=== PATIENT | female | born 1995 | race Caucasian/White ===

== ENCOUNTER 2017-01-28 14:13 | Emergency (ER) | payer MEDICAID, OTHER ==
[~2017-01-28] VITALS: Ht 154.9 cm; Wt 95.5 kg
[~2017-01-28 14:13] MED LIST: IBUP600T26 PO; METH750T2 PO
[2017-01-28 14:14] VITALS: BP 127/70; PULSE 89; RESP 18; TEMP 98.2; O2SAT 99
[2017-01-28 15:07] LABS: BASOPHIL # 0.1 TH/MM3 (0-0.2); BASOPHIL % 0.7 % (0.0-2.0); EOSINOPHIL # 0.1 TH/MM3 (0-0.4); EOSINOPHIL % 0.8 % (0.0-4.0); HEMATOCRIT 39.1 % (35.0-46.0); HEMO FLAGS DIFF FINAL; LYMPH % 32.1 % (9.0-44.0); LYMPHOCYTE # 3.2 TH/MM3 (1.0-4.8); MEAN CELL VOLUME 83.3 FL (80.0-100.0); MEAN CORPUSCULAR HEMOGLOBIN 27.4 PG (27.0-34.0); MEAN CORPUSCULAR HGB CONC 32.9 % (32.0-36.0); MONO % 5.1 % (0.0-8.0); NEUT % 61.3 % (16.0-70.0); PLATELET COUNT 295 TH/MM3 (150-450); RED CELL DISTRIBUTION WIDTH 13.7 % (11.6-17.2); WHITE BLOOD COUNT 9.8 TH/MM3 (4.0-11.0)
[2017-01-28 15:20] LABS: BICARBONATE 28.2 MEQ/L (21.0-32.0); POTASSIUM 3.3 MEQ/L (3.5-5.1)
[2017-01-28 15:56] LABS: BACTERIA, URINE OCC /hpf; BLOOD, URINE NEG (NEG); COMMENT (UR) CULTURE INDICATED; CULTURE IF INDICATED CULTURE INDICATED; GLUCOSE,URINE NEG (NEG); KETONE, URINE NEG (NEG); MUCUS URINE MANY /lpf (OCC); NITRITE,URINE NEG (NEG); PH, URINE 6.5 (5.0-8.5); SQUAMOUS EPITHELIAL CELL URINE 33 /hpf (0-5); URINE COLOR YELLOW (YELLW/STRAW)
--- NOTE | 2017-01-28 16:12 | PD ---
HPI Chief Complaint: [employer] Problem/Complaint Time Seen by Provider: 15:39 Travel History International Travel<30 days: No Contact w/Intl Traveler<30days: No Traveled to known affect area: No History of Present Illness HPI This is a 21-year-old woman who presents to the emergency department complaining of vaginal bleeding. States she has an IUD and normally only has intermittent spotting. She states she is a new male sexual partner. Over the past week she's had heavy bleeding. She denies any increased vaginal discharge. No abdominal pain. He otherwise has been feeling generally well. Review systems positive for little bit of generalized lightheadedness. History Past Medical History Medical History: Denies Significant Hx Social History Alcohol Use: No Tobacco Use: No Allergies-Medications (Allergen,Severity, Reaction): Coded Allergies: No Known Allergies (Verified , 10/25/14) Reported Meds & Prescriptions Reported Meds & Active Scripts Active Review of Systems Except as stated in HPI: all other systems reviewed are Neg Physical Exam Narrative GENERAL: 21 year-old woman, no acute distress. SKIN: Focused skin assessment warm/dry. NECK: Trachea midline. No JVD. CARDIOVASCULAR: Regular rate and rhythm. No murmur appreciated. RESPIRATORY: No accessory muscle use. Clear to auscultation. Breath sounds equal bilaterally. GASTROINTESTINAL: Abdomen soft, non-tender, nondistended. Hepatic and splenic margins not palpable. MUSCULOSKELETAL: No obvious deformities. No edema. NEUROLOGICAL: Awake and alert. No obvious cranial nerve deficits. Motor grossly within normal limits. Normal speech. : Normal sternal female genitalia with a small ulcerated herpetiform lesion on the left lower labia. On exam in the vagina, there is no blood that I can see. Cervix is not visualized. There is a mild to moderate amount of white discharge. No definite purulent cervicitis. On bimanual exam, is minimal generalized pelvic tenderness, no obvious cervical motion tenderness, uterine enlargement, or adnexal masses. Data Data Last Documented VS Vital Signs Date Time Temp Pulse Resp B/P (MAP) Pulse Ox O2 Delivery O2 Flow Rate FiO2 01/28/17 14:14 98.2 89 18 127/70 (89) 99 Room Air Orders Orders Basic Metabolic Panel (Bmp) (01/28/17 14:27) Complete Blood Count With Diff (01/28/17 14:27) Urinalysis - C+S If Indicated (01/28/17 14:27) Ed Urine Pregnancytest Poc (01/28/17 14:27) Urine Culture (01/28/17 14:41) Gc And Chlamydia Pcr (01/28/17 16:05) Wet Prep Profile (01/28/17 16:05) Azithromycin Powd Pack (Zithromax Powd P (01/28/17 16:15) Ondansetron Odt (Zofran Odt) (01/28/17 16:15) Rocephin 250mg Vial Im X 1 (01/28/17 16:15) Lidocaine 1% Inj (50 Ml) (Xylocaine 1% I (01/28/17 16:15) Metronidazole (Flagyl) (01/28/17 16:15) Herpes Simplex Virus Culture (01/28/17 16:05) Labs Laboratory Tests Test 01/28/17 14:41 White Blood Count 9.8 TH/MM3 Red Blood Count 4.70 MIL/MM3 Hemoglobin 12.9 GM/DL Hematocrit 39.1 % Mean Corpuscular Volume 83.3 FL Mean Corpuscular Hemoglobin 27.4 PG Mean Corpuscular Hemoglobin Concent 32.9 % Red Cell Distribution Width 13.7 % Platelet Count 295 TH/MM3 Mean Platelet Volume 8.9 FL Neutrophils (%) (Auto) 61.3 % Lymphocytes (%) (Auto) 32.1 % Monocytes (%) (Auto) 5.1 % Eosinophils (%) (Auto) 0.8 % Basophils (%) (Auto) 0.7 % Neutrophils # (Auto) 6.0 TH/MM3 Lymphocytes # (Auto) 3.2 TH/MM3 Monocytes # (Auto) 0.5 TH/MM3 Eosinophils # (Auto) 0.1 TH/MM3 Basophils # (Auto) 0.1 TH/MM3 CBC Comment DIFF FINAL Differential Comment Urine Color YELLOW Urine Turbidity HAZY Urine pH 6.5 Urine Specific [place] 1.036 Urine Protein 30 mg/dL Urine Glucose (UA) NEG mg/dL Urine Ketones NEG mg/dL Urine Occult Blood NEG Urine Nitrite NEG Urine Bilirubin NEG Urine Urobilinogen 8.0 MG/DL Urine Leukocyte Esterase MOD Urine RBC 4 /hpf Urine WBC 19 /hpf Urine Squamous Epithelial Cells 33 /hpf Urine Bacteria OCC /hpf Urine Mucus MANY /lpf Microscopic Urinalysis Comment CULTURE INDICATED Blood Urea Nitrogen 13 MG/DL Creatinine 0.65 MG/DL Random Glucose 116 MG/DL Calcium Level 9.0 MG/DL Sodium Level 140 MEQ/L Potassium Level 3.3 MEQ/L Chloride Level 106 MEQ/L Carbon Dioxide Level 28.2 MEQ/L Anion Gap 6 MEQ/L Estimat Glomerular Filtration Rate 116 ML/MIN [facility] Medical Decision Making Medical Screen Exam Complete: Yes Emergency Medical Condition: Yes Interpretation(s) LABS: CBC is unremarkable. BMP is unremarkable. UA is unremarkable, minimal pyuria. Differential Diagnosis Cervicitis, herpes, UTI, vaginitis, other Narrative Course Medical decision making 21 year-old woman presents emergency department for evaluations which she describes as vaginal bleeding. On exam she has vaginal discharge, herpetiform lesion, new sexual partner, no bleeding. This is suggestive of cervicitis as etiology of her symptoms. This is also evidenced by the pyuria on her UA. She looks otherwise well. Urine culture sent. We'll treat for cervicitis. Recommend outpatient follow-up. Diagnosis Primary Impression: Cervicitis Additional Instructions: Followup with your community health counselor for routine [employer] care and followup testing for other sexually transmitted infection such as HIV, hepatitis, syphilis. Any sexual partners you have should be tested and treated as well. You should not have sex until you have no symptoms, and your partners tested and treated as well. Med/Other Pt SpecificInfo: No Change to Meds Scripts No Active Prescriptions or Reported Meds Disposition: 01 DISCHARGE HOME Condition: Rory Fermin MD Jan 28, 2017 16:12
[2017-01-28] MEDS ORDERED: cefTRIAXone 250 MG VIAL IM ONE (16:15)
[2017-01-28] MEDS ORDERED: metroNIDAZOLE 500 MG TAB PO ONE (16:15)
[2017-01-28] MEDS ORDERED: ONDANSETRON ODT 4 MG TAB PO ONE (16:15)
[2017-01-28] MEDS ORDERED: LIDOCAINE HCL 1% 50 ML VIAL IM ONE (16:15)
[2017-01-28] MEDS ORDERED: AZITHROMYCIN PWD FOR SUSP 1 GM PACKET PO ONE (16:15)
[2017-01-28 22:31] LABS: CHLAMYDIA PCR DETECTED (NOT DETECT); NEISSERIA PCR NOT DETECTED (NOT DETECT)
== END 2017-01-28 17:07 | disposition home or self-care (01) ==
LOC: NEPC 14:13
DX: N72 Inflammatory disease of cervix uteri (principal); B96.89 Other specified bacterial agents as the cause of diseases classified elsewhere; R42 Dizziness and giddiness
CPT/HCPCS: 80048; 81001; 84703; 85025; 87086; 87210; 87255; 87491; 87591; 96372; 99284; J0696